=== PATIENT | male | born 1975 | race Two or more races ===

== ENCOUNTER 2024-06-09 11:33 | Emergency (ER) | payer OTHER ==
[~2024-06-09] VITALS: Ht 180.3 cm; Wt 72.6 kg
== END 2024-06-09 15:32 | disposition home or self-care (01) ==
LOC: ER 11:36
DX: S09.8XXA Other specified injuries of head, initial encounter (principal); Y08.89XA Assault by other specified means, initial encounter; Y93.89 Activity, other specified; Y92.89 Other specified places as the place of occurrence of the external cause; Y99.8 Other external cause status